=== PATIENT | female | born 1985 | race Caucasian/White ===

== ENCOUNTER → 2016-10-28 | Outpatient (CLI) | payer BC ==
--- NOTE | 2016-10-28 14:33 | P.BASOAP ---
Subjective Principal diagnosis: Morbid obesity Patient here today for follow-up. She is 9 months post sleeve gastrectomy. She never did have her six-month lab work performed. She has had slight increase in her hunger. She is able to eat slightly more than she used to. She is exercising 4 times per week. Denies heartburn. Objective - Exam Abdomen: Soft, nondistended, nontender Assessment/Plan (1) Morbid obesity Narrative/Plan: We'll check 6 month lab work at this time. Continue exercise regimen. Follow- up in the office 6 weeks. Plan: Date: Initial Weight: 150.683 kg Initial BMI: Current Weight: Current BMI: Type of Surgery: Total Volume in Band: Previous Volume: Volume Removed: Volume Added: Band Size:
[2016-10-28 16:19] VITALS: BP 135/78; PULSE 57; TEMP 98.2; BMI 33.2
== END | disposition home or self-care (01) ==
LOC: BARWHC3 13:46
PROVIDERS: ATTEND Surgery
DX: Z48.815 Encounter for surgical aftercare following surgery on the digestive system (principal); E66.01 Morbid (severe) obesity due to excess calories; Z98.84 Bariatric surgery status
CPT/HCPCS: 99211

== ENCOUNTER → 2016-11-10 | Outpatient (CLI) | payer BC ==
[2016-11-10 14:43] LABS: CH 30.8; CHCM 33.1; HCT 38.1 % (34.0-46.0); HDW 2.48; HGB 12.4 gm/dL (11.4-16.0); MCH 30.3 pg (25.0-35.0); MCHC 32.5 g/dL (31.0-37.0); MCV 93.2 fL (80.0-100.0); Mean Platelet Volume 7.9; RBC 4.09 m/uL (3.80-5.40); RDW 13.4 % (11.5-15.5); WBC 4.7 k/uL (3.8-10.6)
[2016-11-10 14:47] LABS: ALT 36 U/L (9-52); AST 19 U/L (14-36); Alkaline Phosphatase 61 U/L (38-126); Anion Gap 11 mmol/L; Blood Urea Nitrogen 11 mg/dL (7-17); Calcium 9.5 mg/dL (8.4-10.2); Carbon Dioxide 29 mmol/L (22-30); Chloride 105 mmol/L (98-107); Glucose 86 mg/dL (74-99); Iron 76 ug/dL (37-170); Non-African American GFR(MDRD) >60 (>60 ml/min/1.73 sqM); Potassium 4.6 mmol/L (3.5-5.1); Sodium 145 mmol/L (137-145); Total Bilirubin 0.6 mg/dL (0.2-1.3); Total Protein 6.9 g/dL (6.3-8.2)
[2016-11-10 15:51] LABS: Vitamin B12 522 pg/mL (239-931)
== END | disposition home or self-care (01) ==
LOC: LABWHC1 13:44
PROVIDERS: ATTEND Surgery
DX: K90.9 Intestinal malabsorption, unspecified (principal); E55.9 Vitamin D deficiency, unspecified; E66.01 Morbid (severe) obesity due to excess calories
CPT/HCPCS: 36415; 80053; 82306; 82607; 82746; 83540; 84425; 85027

== ENCOUNTER → 2017-02-10 | Outpatient (CLI) | payer BC ==
[2017-02-10 14:10] VITALS: BMI 31.0
[2017-02-10 14:20] VITALS: BP 136/71; PULSE 65; RESP 18; TEMP 98.3
--- NOTE | 2017-02-10 14:58 | P.BASOAP ---
Subjective Principal diagnosis: Morbid obesity Patient is doing well postop. Surgery was a little over one year ago. She has had excellent weight loss. She started at 332. Currently she is at 201. She is exercising regularly. Denies heartburn. No pain. Hunger is minimal. She is for 1 year labs. She is complaining of some rash beneath the pannus. Objective - Vital Signs Vital signs: Vital Signs Temp 98.3 F 02/10/17 14:15 Pulse 65 02/10/17 14:15 Resp 18 02/10/17 14:15 BP 136/71 02/10/17 14:15 Pulse Ox Intake & Output 02/09/17 02/10/17 02/10/17 18:59 06:59 18:59 Weight 91.308 kg - Exam Abdomen: Soft, nontender, nondistended, mild rash noted Assessment/Plan (1) Morbid obesity Narrative/Plan: Continue dietary and exercise regimen. Recheck 1 year labs. Follow-up 3-6 months. Plan: Date: 02/10/17 Initial Weight: 150.683 kg Initial BMI: 51.2 Current Weight: 91.308 kg Current BMI: 31.0 Type of Surgery: Total Volume in Band: Previous Volume: Volume Removed: Volume Added: Band Size:
== END | disposition home or self-care (01) ==
LOC: BARWHC3 13:21
PROVIDERS: ATTEND Surgery
DX: E66.01 Morbid (severe) obesity due to excess calories (principal); E55.9 Vitamin D deficiency, unspecified
CPT/HCPCS: 97803; 99211

== ENCOUNTER 2017-11-29 19:01 | Emergency (ER) | payer BC ==
[2017-11-29] MEDS ORDERED: SODIUM CHLORIDE 0.9% 1,000 ML IV STA ×2 (19:16)
[2017-11-29] MEDS ORDERED: RX INFO: IV CONTRAST WAS GIVEN 1 EACH MISC MISCELLANE PRN ×2 (19:16→19:23)
[2017-11-29] MEDS ORDERED: MORPHINE SULFATE 4 MG/ML SYRINGE IV STA (19:16)
--- NOTE | 2017-11-29 19:25 | ED ---
General Adult HPI - General Chief complaint: Abdominal Pain Stated complaint: Abdominal pain Time Seen by Provider: 11/29/17 19:09 Source: patient, RN notes reviewed, old records reviewed Mode of arrival: ambulatory Limitations: no limitations - History of Present Illness Initial comments: This is a 31-year-old female to the ER for evaluation. Patient is ER for evaluation of not feeling like herself. Episodic and epigastric abdominal pain , nausea. No travel history no sick contacts. No fevers. Patient is symptoms for a few days ago, symptoms have progressed. Patient is having worse pain especially after eating. She is also having no bowel - Related Data Home Medications Medication Instructions Recorded Confirmed Multivitamins, Thera [Multivitamin] 1 tab PO DAILY 02/27/16 12/01/17 Biotin 5 mg PO DAILY 06/17/16 12/01/17 Allergies Allergy/AdvReac Type Severity Reaction Status Date / Time No Known Allergies Allergy Verified 12/01/17 16:17 Review of Systems ROS Statement: Those systems with pertinent positive or pertinent negative responses have been documented in the HPI. ROS Other: All systems not noted in ROS Statement are negative. Past Medical History Past Medical History: Asthma, Skin Disorder Additional Past Medical History / Comment(s): allergy induced asthma,varicose veins,skin irritation to rodrigo interior upper legs, THINKS SHE HAS A PNE VACCINE BUT NOT SURE WHEN. History of Any Multi-Drug Resistant Organisms: None Reported Past Surgical History: Adenoidectomy, Bariatric Surgery, Cholecystectomy, Tonsillectomy Additional Past Surgical History / Comment(s): lt wrist tendon surgery, cyst on tailbone removed 2002,EGD, 02-01-16 LAP SLEEVE GASTRECTOMY. Past Anesthesia/Blood Transfusion Reactions: No Reported Reaction, Family History of Problems w/ Anesthesia, Motion Sickness Additional Past Anesthesia/Blood Transfusion Reaction / Comment(s): mother has ponv Past Psychological History: No Psychological Hx Reported Smoking Status: Former smoker Past Alcohol Use History: Rare Past Drug Use History: None Reported - Past Family History Mother Additional Family Medical History / Comment(s): pre cancer tumor removed from stomach Father Family Medical History: Hypertension Additional Family Medical History / Comment(s): MS, BOARDERLINE CHOLESTEROL General Exam Limitations: no limitations General appearance: alert, in no apparent distress Head exam: Present: atraumatic, normocephalic, normal inspection Eye exam: Present: normal appearance, PERRL, EOMI. Absent: scleral icterus, conjunctival injection, periorbital swelling ENT exam: Present: normal exam, mucous membranes moist Neck exam: Present: normal inspection. Absent: tenderness, meningismus, lymphadenopathy Respiratory exam: Present: normal lung sounds bilaterally. Absent: respiratory distress, wheezes, rales, rhonchi, stridor Cardiovascular Exam: Present: regular rate, normal rhythm, normal heart sounds. Absent: systolic murmur, diastolic murmur, rubs, gallop, clicks GI/Abdominal exam: Present: soft, normal bowel sounds. Absent: distended, tenderness, guarding, rebound, rigid Extremities exam: Present: normal inspection, full ROM, normal capillary refill. Absent: tenderness, pedal edema, joint swelling, calf tenderness Back exam: Present: normal inspection Neurological exam: Present: alert, oriented X3, CN II-XII intact Psychiatric exam: Present: normal affect, normal mood Skin exam: Present: warm, dry, intact, normal color. Absent: rash Course Vital Signs 11/29/17 11/29/17 19:05 22:15 Temperature 99.4 F 98.7 F Pulse Rate 66 68 Respiratory 16 18 Rate Blood Pressure 138/82 134/77 O2 Sat by Pulse 100 100 Oximetry Medical Decision Making - Medical Decision Making 31 female the ER for evaluation of abdominal pain, patient has history of gastric bypass, patient's pain is well-controlled at this point. Spoke with Dr. Carnes, labwork and CT negative. Patient can be discharged home - Lab Data Result diagrams: 11/29/17 19:38 11/29/17 19:38 Lab Results 11/29/17 11/29/17 11/29/17 Range/Units 19:38 19:38 19:38 WBC 5.9 (3.8-10.6) k/uL RBC 4.26 (3.80-5.40) m/uL Hgb 13.1 (11.4-16.0) gm/dL Hct 39.7 (34.0-46.0) % MCV 93.2 (80.0-100.0) fL MCH 30.8 (25.0-35.0) pg MCHC 33.1 (31.0-37.0) g/dL RDW 13.2 (11.5-15.5) % Plt Count 246 (150-450) k/uL Neutrophils % 44 % Lymphocytes % 46 % Monocytes % 4 % Eosinophils % 3 % Basophils % 1 % Neutrophils # 2.6 (1.3-7.7) k/uL Lymphocytes # 2.7 (1.0-4.8) k/uL Monocytes # 0.2 (0-1.0) k/uL Eosinophils # 0.2 (0-0.7) k/uL Basophils # 0.1 (0-0.2) k/uL Sodium 141 (137-145) mmol/L Potassium 3.8 (3.5-5.1) mmol/L Chloride 106 (98-107) mmol/L Carbon Dioxide 25 (22-30) mmol/L Anion Gap 10 mmol/L BUN 11 (7-17) mg/dL Creatinine 0.70 (0.52-1.04) mg/dL Est GFR (MDRD) Af Amer >60 (>60 ml/min/1.73 sqM) Est GFR (MDRD) Non-Af >60 (>60 ml/min/1.73 sqM) Glucose 82 (74-99) mg/dL Plasma Lactic Acid Saran 0.6 L (0.7-2.0) mmol/L Calcium 9.4 (8.4-10.2) mg/dL Total Bilirubin 0.4 (0.2-1.3) mg/dL AST 22 (14-36) U/L ALT 33 (9-52) U/L Alkaline Phosphatase 71 (38-126) U/L Total Protein 7.2 (6.3-8.2) g/dL Albumin 4.3 (3.5-5.0) g/dL Amylase 50 (30-110) U/L Lipase 115 (23-300) U/L Urine Color Urine Appearance (Clear) Urine pH (5.0-8.0) Ur Specific Rayne (1.001-1.035) Urine Protein (Negative) Urine Glucose (UA) (Negative) Urine Ketones (Negative) Urine Blood (Negative) Urine Nitrite (Negative) Urine Bilirubin (Negative) Urine Urobilinogen (<2.0) mg/dL Ur Leukocyte Esterase (Negative) Urine RBC (0-5) /hpf Urine WBC (0-5) /hpf Ur Squamous Epith Cells (0-4) /hpf Urine Bacteria (None) /hpf Urine Mucus (None) /hpf Urine HCG, Qual (Not Detectd) 11/29/17 11/29/17 Range/Units 19:38 19:38 WBC (3.8-10.6) k/uL RBC (3.80-5.40) m/uL Hgb (11.4-16.0) gm/dL Hct (34.0-46.0) % MCV (80.0-100.0) fL MCH (25.0-35.0) pg MCHC (31.0-37.0) g/dL RDW (11.5-15.5) % Plt Count (150-450) k/uL Neutrophils % % Lymphocytes % % Monocytes % % Eosinophils % % Basophils % % Neutrophils # (1.3-7.7) k/uL Lymphocytes # (1.0-4.8) k/uL Monocytes # (0-1.0) k/uL Eosinophils # (0-0.7) k/uL Basophils # (0-0.2) k/uL Sodium (137-145) mmol/L Potassium (3.5-5.1) mmol/L Chloride (98-107) mmol/L Carbon Dioxide (22-30) mmol/L Anion Gap mmol/L BUN (7-17) mg/dL Creatinine (0.52-1.04) mg/dL Est GFR (MDRD) Af Amer (>60 ml/min/1.73 sqM) Est GFR (MDRD) Non-Af (>60 ml/min/1.73 sqM) Glucose (74-99) mg/dL Plasma Lactic Acid Saran (0.7-2.0) mmol/L Calcium (8.4-10.2) mg/dL Total Bilirubin (0.2-1.3) mg/dL AST (14-36) U/L ALT (9-52) U/L Alkaline Phosphatase (38-126) U/L Total Protein (6.3-8.2) g/dL Albumin (3.5-5.0) g/dL Amylase (30-110) U/L Lipase (23-300) U/L Urine Color Yellow Urine Appearance Clear (Clear) Urine pH 5.5 (5.0-8.0) Ur Specific Rayne 1.017 (1.001-1.035) Urine Protein Negative (Negative) Urine Glucose (UA) Negative (Negative) Urine Ketones Negative (Negative) Urine Blood Negative (Negative) Urine Nitrite Negative (Negative) Urine Bilirubin Negative (Negative) Urine Urobilinogen <2.0 (<2.0) mg/dL Ur Leukocyte Esterase Small H (Negative) Urine RBC 2 (0-5) /hpf Urine WBC 2 (0-5) /hpf Ur Squamous Epith Cells 1 (0-4) /hpf Urine Bacteria Rare H (None) /hpf Urine Mucus Occasional H (None) /hpf Urine HCG, Qual Not Detected (Not Detectd) - Radiology Data Radiology results: report reviewed (CT abdomen and pelvis, CTA chest negative for acute disease), image reviewed Disposition Clinical Impression: Abdominal pain Disposition: HOME SELF-CARE Condition: Good Instructions: Abdominal Pain (ED) Referrals: Yani Crisostomo MD [Primary Care Provider] - 1-2 days
[2017-11-29] MEDS ORDERED: ONDANSETRON 4 MG/2 ML VIAL IVP STA (19:48)
[2017-11-29] MEDS ORDERED: PANTOPRAZOLE 40 MG/10 ML VIAL IVP STA (19:48)
[2017-11-29 19:55] LABS: Appearance,Urine Clear (Clear); Bacteria,Urine Rare /hpf; Bilirubin,Urine Negative (Negative); Blood,Urine Negative (Negative); Color,Urine Yellow; Glucose,Urine (UA) Negative (Negative); Ketones,Urine Negative (Negative); Leukocyte Esterase,Urine Small (Negative); Mucus,Urine Occasional /hpf; Nitrite,Urine Negative (Negative); PH, Urine 5.5 (5.0-8.0); Protein,Urine Negative (Negative); RBC,Urine 2 /hpf (0-5); Specific Gravity,Urine 1.017 (1.001-1.035); Squamous Epithelial Cell,Urine 1 /hpf (0-4); Urobilinogen,Urine <2.0 mg/dL (<2.0); WBC,Urine 2 /hpf (0-5)
[2017-11-29 19:56] LABS: Basophils # (A) 0.1 k/uL (0-0.2); Basophils % (A) 1 %; Eosinophils # (A) 0.2 k/uL (0-0.7); Eosinophils % (A) 3 %; HCT 39.7 % (34.0-46.0); HGB 13.1 gm/dL (11.4-16.0); Lymphocytes # (A) 2.7 k/uL (1.0-4.8); Lymphocytes % (A) 46 %; MCH 30.8 pg (25.0-35.0); MCHC 33.1 g/dL (31.0-37.0); MCV 93.2 fL (80.0-100.0); Mean Platelet Volume 7.5; Monocytes # (A) 0.2 k/uL (0-1.0); Monocytes % (A) 4 %; Neutrophils # (A) 2.6 k/uL (1.3-7.7); Neutrophils % (A) 44 %; Platelet Count 246 k/uL (150-450); RBC 4.26 m/uL (3.80-5.40); RDW 13.2 % (11.5-15.5); WBC 5.9 k/uL (3.8-10.6)
[2017-11-29 20:09] LABS: ALT 33 U/L (9-52); AST 22 U/L (14-36); Albumin 4.3 g/dL (3.5-5.0); Alkaline Phosphatase 71 U/L (38-126); Amylase 50 U/L (30-110); Anion Gap 10 mmol/L; Blood Urea Nitrogen 11 mg/dL (7-17); Calcium 9.4 mg/dL (8.4-10.2); Carbon Dioxide 25 mmol/L (22-30); Chloride 106 mmol/L (98-107); Glucose 82 mg/dL (74-99); Lipase 115 U/L (23-300); Potassium 3.8 mmol/L (3.5-5.1); Sodium 141 mmol/L (137-145); Total Bilirubin 0.4 mg/dL (0.2-1.3); Total Protein 7.2 g/dL (6.3-8.2)
--- NOTE | 2017-11-29 21:23 | CT ---
EXAMINATION TYPE: CT angio chest DATE OF EXAM: 11/29/2017 COMPARISON: NONE HISTORY: Right upper quadrant pain, lower rib pain x 1 week. Chills and decreased bowel movements. CT DLP: 360.2 mGycm. Automated Exposure Control for Dose Reduction was Utilized. CONTRAST: CTA scan of the thorax is performed with IV Contrast, patient injected with 100 mL of Omnipaque 350, pulmonary embolism protocol. MIP Images are created on CT scanner and reviewed. FINDINGS: LUNGS: The lungs are grossly clear, there is no concerning parenchymal mass or nodule identified. T here is no pleural effusion or pneumothorax seen. The tracheobronchial tree is patent. MEDIASTINUM: Small degree of probable residual thymus is seen within the superior mediastinum. There is satisfactory enhancement of the pulmonary artery and its branches, there is no CT evidence for pul monary embolism. There are no greater than 1 cm hilar or mediastinal lymph nodes. No cardiomegaly or pericardial effusion is seen. OTHER: Postsurgical changes are seen of the greater curvature the stomach and gallbladder fossa. Mild multilevel degenerative changes of the thoracic spine. IMPRESSION: 1. No evidence of pulmonary embolism. 2. No evidence of rib fracture. 3. No acute intrathoracic process.
--- NOTE | 2017-11-29 21:27 | CT ---
EXAMINATION TYPE: CT abdomen pelvis w con DATE OF EXAM: 11/29/2017 HISTORY: Right upper quadrant pain, lower rib pain x 1 week. Chills and decreased bowel movements. CT DLP: 951.5mGycm Automated Exposure Control for Dose Reduction was Utilized. CONTRAST: CT scan of the abdomen and pelvis is performed with IV Contrast, patient injected with 100 mL of Omni paque 350. COMPARISON: None. FINDINGS: LUNG BASES: Visualized portion of the lung bases are discussed on the CT thorax dictation the same da te. LIVER/GB: There is mild intrahepatic biliary ductal dilatation although the gallbladder is surgically absent and this may be related to postcholecystectomy changes there is also extra hepatic biliary du ctal dilatation.. PANCREAS: Unremarkable. No ductal dilatation. SPLEEN: No significant abnormality is seen. Within normal limits of size measuring 11.5 cm in cranioc audal dimension. ADRENALS: No significant abnormality is seen. No nodularity. KIDNEYS: No hydronephrosis. No ureteral dilatation. Kidneys enhance symmetrically. BOWEL: Postsurgical changes are seen of the greater curvature the stomach from prior partial gastrect niurka.. UTERUS/ADNEXA: No gross abnormality seen. LYMPH NODES: No greater than 1cm abdominal or pelvic lymph nodes are appreciated. OSSEOUS STRUCTURES: Vertebral body hemangioma seen of L2. IMPRESSION: 1. Mild intrahepatic and hepatic biliary ductal dilatation. This can be seen in postcholecystectomy a lthough if there are abnormal laboratory values MRCP could be performed for further evaluation. 2. No other evidence of acute intra-abdominal process.
[2017-11-29] MEDS ORDERED: MAG HYDROX/AL HYDROX/SIMETH 30 ML, HYOSCYAMINE ELIXIR 10 ML, CIMETIDINE HCL 300 MG, LID... PO STA ×4 (21:34)
[2017-11-29] MEDS ORDERED: HYDROmorphone 2 MG/ML 1 ML SYRINGE IM STA (21:34)
[2017-11-29] MEDS ORDERED: HYDROmorphone 0.5 MG/0.5 ML SYRINGE IM STA (21:55)
[2017-11-29 22:16] VITALS: BP 134/77; PULSE 68; RESP 18; TEMP 98.7
== END 2017-11-29 22:16 | disposition home or self-care (01) ==
LOC: EC 19:01
DX: R10.13 Epigastric pain (principal); R11.0 Nausea; Z90.49 Acquired absence of other specified parts of digestive tract; Z98.84 Bariatric surgery status; Z90.3 Acquired absence of stomach [part of]; Z87.891 Personal history of nicotine dependence; Z79.899 Other long term (current) drug therapy
CPT/HCPCS: 36415; 80053; 82150; 83605; 83690; 85025; 81001; 81025; 87086; 71275; 74177; 99285; 96374; 96375 ×2; 96361; 96372; J2270; Q9967; J2405; C9113; J1170

== ENCOUNTER → 2017-12-01 | Outpatient (CLI) | payer BC ==
[2017-12-01 16:20] VITALS: BP 129/83; PULSE 58; TEMP 99; BMI 30.7
--- NOTE | 2017-12-01 16:45 | P.BASOAP ---
Subjective Progress Note Date: 12/01/17 Principal diagnosis: Morbid obesity, abdominal pain Patient in our clinic from prior laparoscopic sleeve gastrectomy. Overall the patient has had somewhat poor follow-up since her initial surgery. Over the last several weeks she has had upper abdominal discomfort in the midline radiating to the back. She says it actually reminds her of her previous gallbladder issues. She did have her gallbladder removed however. No history of pancreatitis. She went to the ER 2 days ago for evaluation. CAT scan of the chest abdomen and pelvis showed no definite abnormalities. There was slight dilation of the biliary tree however her liver enzymes were normal. She does admit to drinking slightly more alcohol the evening before. Low-grade fever and chills at times. 1 episode of regurgitation with toast. She does believe the pain is aggravated somewhat by eating. No heartburn. No vomiting. Labs including amylase and lipase were normal in the ER. She does describe increased stress at work and is wondering about the possibility of ulcer disease. Denies black stools. Objective - Vital Signs Vital signs: Vital Signs Temp 99 F 12/01/17 16:14 Pulse 58 L 12/01/17 16:14 Resp BP 129/83 12/01/17 16:14 Pulse Ox Intake & Output 11/30/17 12/01/17 12/01/17 18:59 06:59 18:59 Weight 90.492 kg - Exam Abdomen: Soft, mild epigastric tenderness, no rebound or guarding Assessment/Plan (1) Abdominal pain Narrative/Plan: From a weight loss standpoint the patient is doing quite well. Unfortunate she is now having epigastric abdominal pain. Options discussed in detail with the patient. Will begin antiacid therapy. If symptoms persist proceed with upper endoscopy. Follow-up appointment in 4-6 weeks. Plan: Date: 12/01/17 Initial Weight: 150.683 kg Initial BMI: 51.2 Current Weight: 90.492 kg Current BMI: 30.7 Type of Surgery: Total Volume in Band: Previous Volume: Volume Removed: Volume Added: Band Size:
== END | disposition home or self-care (01) ==
LOC: BARWHC3 15:37
PROVIDERS: ATTEND Surgery
DX: R10.13 Epigastric pain (principal); E66.01 Morbid (severe) obesity due to excess calories; Z68.43 Body mass index [BMI] 50.0-59.9, adult; Z90.49 Acquired absence of other specified parts of digestive tract
CPT/HCPCS: 99211

== ENCOUNTER 2017-12-11 11:23 | Day surgery (SDC) | payer BC ==
[2017-12-09 10:28] VITALS: BMI 28.8
[~2017-12-11 11:23] MED LIST: LACTATED RINGERS 1,000 ML IV SCH
[2017-12-11 11:48] VITALS: RESP 16; TEMP 98.2
[2017-12-11] MEDS ORDERED: LIDOCAINE 1% 20 ML VIAL (10MG/ML) FOR IV START INTRADERMA ONE (11:58)
--- NOTE | 2017-12-11 12:19 | P.GSHP ---
History of Present Illness H&P Date: 12/11/17 Chief Complaint: Abdominal pain 31-year-old female known to our service. Underwent prior laparoscopic sleeve gastrectomy. Recently has been having complaints of upper abdominal pain. Please refer to recent clinic visit note from late November. Here today for upper endoscopy. Past Medical History Past Medical History: Asthma Additional Past Medical History / Comment(s): Allergy induced asthma, A CHILD. Varicose veins. THINKS SHE HAS A PNE VACCINE BUT NOT SURE WHEN. History of Any Multi-Drug Resistant Organisms: None Reported Past Surgical History: Adenoidectomy, Bariatric Surgery, Cholecystectomy, Tonsillectomy Additional Past Surgical History / Comment(s): lt wrist tendon surgery, cyst on tailbone removed 2002,EGD, 02-01-16 LAP SLEEVE GASTRECTOMY. Past Anesthesia/Blood Transfusion Reactions: Family History of Problems w/ Anesthesia, Motion Sickness Additional Past Anesthesia/Blood Transfusion Reaction / Comment(s): mother has ponv Smoking Status: Former smoker - Past Family History Mother Additional Family Medical History / Comment(s): pre cancer tumor removed from stomach Father Family Medical History: Hypertension Additional Family Medical History / Comment(s): MS, BOARDERLINE CHOLESTEROL Medications and Allergies Home Medications Medication Instructions Recorded Confirmed Type Multivitamins, Thera [Multivitamin] 1 tab PO DAILY 02/27/16 12/09/17 History Biotin 5 mg PO DAILY 06/17/16 12/09/17 History Omeprazole Unsure Dose 1 cap PO DAILY 12/09/17 History Allergies Allergy/AdvReac Type Severity Reaction Status Date / Time No Known Allergies Allergy Verified 12/11/17 11:46 Surgical - Exam Vital Signs Temp Pulse Resp BP Pulse Ox 98.2 F 60 16 116/77 98 12/11/17 11:47 12/11/17 11:47 12/11/17 11:47 12/11/17 11:47 12/11/17 11:47 Physical exam: General: Well-developed, well-nourished HEENT: Normocephalic, sclerae nonicteric Abdomen: Nontender, nondistended Extremities: No edema Neuro: Alert and oriented Assessment and Plan (1) Abdominal pain Narrative/Plan: Will proceed with upper endoscopy at this time. Current Visit: No Status: Acute Code(s): R10.9 - UNSPECIFIED ABDOMINAL PAIN SNOMED Code(s): 05421399
[2017-12-11] MEDS ORDERED: PROPOFOL 10 MG/ML 20 ML VIAL IV ONE (12:23)
--- NOTE | 2017-12-11 12:39 | P.PCN ---
Date of Procedure: 12/11/17 Procedure(s) Performed: Preoperative Dx: Abdominal pain Postoperative Dx: Mild gastritis post sleeve gastrectomy Procedure: EGD with Bx Anesthesia: Sedation Endoscopist: Dr. Scott Specimens: Antrum Endoscopic Procedure: The patient was on the endoscopy table in the left decubitus position. The Olympus gastroscope was inserted into the oropharynx and passed under direct visualization to the region of the third portion of the duodenum. From that point the scope was slowly withdrawn inspecting all surfaces carefully. There were no neoplastic inflammatory or polypoid lesions throughout the duodenum. The pylorus was widely patent. The stomach was carefully inspected. There was mild gastritis present. A biopsy of the antrum took place to rule out H. pylori. Retroflexion was able to be performed in the distal stomach. The proximal sleeve appeared appropriately sized. There are no abnormalities identified throughout the length of the sleeve. At the apex of the sleeve staple line I was able to visualize a small staple without inflammatory changes. The esophagus was then carefully examined. There were no neoplastic inflammatory or polypoid lesions throughout the visualized esophagus. The patient was then taken to the recovery room in stable condition per anesthesia guidelines. Recommendations: Continue antiacid therapy. Await biopsy results.
[2017-12-11 13:03] VITALS: BP 101/59; PULSE 53
== END 2017-12-11 13:18 | disposition home or self-care (01) ==
LOC: ORWHC2ENDO 11:23
PROVIDERS: ATTEND Surgery
DX: K29.50 Unspecified chronic gastritis without bleeding (principal); Z90.3 Acquired absence of stomach [part of]; Z98.84 Bariatric surgery status; K21.9 Gastro-esophageal reflux disease without esophagitis; Z79.899 Other long term (current) drug therapy; Z72.0 Tobacco use
CPT/HCPCS: 81025; 88305; 43239; J2704

== ENCOUNTER 2020-09-05 19:49 | Emergency (ER) | payer BC ==
[2020-09-05 20:06] VITALS: BP 138/92; PULSE 105; RESP 20; TEMP 98.5
[2020-09-05] MEDS ORDERED: SODIUM CHLORIDE 0.9% 1,000 ML IV STA (20:21)
[2020-09-05] MEDS ORDERED: ASPIRIN 81 MG PO STA (20:21)
--- NOTE | 2020-09-05 20:37 | ED ---
General Adult HPI - General Chief complaint: Recheck/Abnormal Lab/Rx Stated complaint: Arm pain/light headed Time Seen by Provider: 09/05/20 20:12 Source: patient Mode of arrival: ambulatory Limitations: no limitations - History of Present Illness Initial comments: 34-year-old female patient presents to the emergency department today for evaluation of left upper chest pain left arm pain. States this been going on since this morning and has not gone away. 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 States her vital signs were okay. States that they talked her into getting checked also on the way here she then started to lose her vision and hearing and thought she may pass out. Patient states the pain in her chest that increased during that time. She states she has had some lightheadedness as well. Denies any headache. Denies blurred or double vision, but states she cannot focus. States she is mildly nauseated but denies any vomiting. Denies any sweats. Denies any history of similar symptoms. She does not take any medications. States she did start. States that she does not believe she is . Denies any neck pain or recent injuries. Patient denies any recent rash, fever, chills, cough, abdominal pain, nausea, vomiting, diarrhea, constipation, back pain, numbness, tingling, hematuria, dysuria, urinary urgency, urinary frequency, or any other complaints. - Related Data Home Medications Medication Instructions Recorded Confirmed Thrive Multivitamin 1 tab PO DAILY 09/05/20 09/05/20 Allergies Allergy/AdvReac Type Severity Reaction Status Date / Time No Known Allergies Allergy Verified 09/05/20 21:08 Review of Systems ROS Statement: Those systems with pertinent positive or pertinent negative responses have been documented in the HPI. ROS Other: All systems not noted in ROS Statement are negative. Past Medical History Past Medical History: Asthma Additional Past Medical History / Comment(s): Allergy induced asthma, A CHILD. Varicose veins. THINKS SHE HAS A PNE VACCINE BUT NOT SURE WHEN. History of Any Multi-Drug Resistant Organisms: None Reported Past Surgical History: Adenoidectomy, Bariatric Surgery, Cholecystectomy, Tonsillectomy Additional Past Surgical History / Comment(s): lt wrist tendon surgery, cyst on tailbone removed 2002,EGD, 4-29-16 LAP SLEEVE GASTRECTOMY. Past Anesthesia/Blood Transfusion Reactions: Family History of Problems w/ Anesthesia, Motion Sickness Additional Past Anesthesia/Blood Transfusion Reaction / Comment(s): mother has ponv Past Psychological History: No Psychological Hx Reported Smoking Status: Current some day smoker Past Alcohol Use History: Occasional Past Drug Use History: None Reported - Past Family History Mother Additional Family Medical History / Comment(s): pre cancer tumor removed from stomach Father Family Medical History: Hypertension Additional Family Medical History / Comment(s): MS, BOARDERLINE CHOLESTEROL General Exam Limitations: no limitations General appearance: alert, in no apparent distress, other (This is a well- developed, well-nourished adult female patient in no acute distress. Vital signs upon presentation are temperature 98.5F, pulse 105, respirations 20, blood pressure 138/92, pulse ox 97% on room air.) Eye exam: Present: normal appearance, PERRL, EOMI. Absent: scleral icterus, conjunctival injection, periorbital swelling ENT exam: Present: normal exam, normal oropharynx, mucous membranes moist Respiratory exam: Present: normal lung sounds bilaterally. Absent: respiratory distress, wheezes, rales, rhonchi, stridor Cardiovascular Exam: Present: normal rhythm, tachycardia, normal heart sounds. Absent: systolic murmur, diastolic murmur, rubs, gallop, clicks GI/Abdominal exam: Present: soft, normal bowel sounds. Absent: distended, tenderness, guarding, rebound, rigid Neurological exam: Present: alert, oriented X3, CN II-XII intact Expanded Speech: Present: fluid speech Cranial nerves: EOM's Intact: Normal, Tongue Deviation: Normal, Nystagmus: Normal Motor strength exam: RUE: 5, LUE: 5, RLE: 5, LLE: 5 Eye Response: (4) open spontaneously Motor Response: (6) obeys commands Verbal Response: (5) oriented Domenic Total: 15 Psychiatric exam: Present: normal affect, normal mood Skin exam: Present: warm, dry, intact, normal color. Absent: rash Course Vital Signs 09/05/20 20:03 Temperature 98.5 F Pulse Rate 105 H Respiratory 20 Rate Blood Pressure 138/92 O2 Sat by Pulse 97 Oximetry EKG Findings - EKG Comments: EKG Findings:: EKG obtained at 2027 shows sinus bradycardia with a ventricular rate of 59, [place] interval 164, QRS duration 92, QT 418, QTC 413. No evidence of ST elevation or depression. Medical Decision Making - Medical Decision Making 34-year-old female patient presented to the emergency department today for evaluation of left upper chest pain radiating down the left arm. He is also reporting lightheadedness and a near syncopal event while driving here. Physica l examination was unremarkable. Lungs are clear to auscultation. EKG showed sinus bradycardia with no ST elevation or depression. Labs reviewed and are unremarkable. Troponin and d-dimer are both negative. Chest x-ray showed no acute cardiopulmonary process. I did discuss findings and results with the patient. I did offer further evaluation with second troponin and about an hour and a half, patient states that she currently feels comfortable being discharged home and she is feeling somewhat better. She'll be discharged. Her primary care physician for recheck in 1-2 days. She is instructed to discuss possible stress test. Return parameters were discussed in detail. She verbalizes understanding and agrees with this plan - Lab Data Result diagrams: 09/05/20 20:42 09/05/20 20:38 Lab Results 09/05/20 09/05/20 09/05/20 Range/Units 20:38 20:38 20:38 WBC (3.8-10.6) k/uL RBC (3.80-5.40) m/uL Hgb (11.4-16.0) gm/dL Hct (34.0-46.0) % MCV (80.0-100.0) fL MCH (25.0-35.0) pg MCHC (31.0-37.0) g/dL RDW (11.5-15.5) % Plt Count (150-450) k/uL MPV Neutrophils % % Lymphocytes % % Monocytes % % Eosinophils % % Basophils % % Neutrophils # (1.3-7.7) k/uL Lymphocytes # (1.0-4.8) k/uL Monocytes # (0-1.0) k/uL Eosinophils # (0-0.7) k/uL Basophils # (0-0.2) k/uL PT 10.4 (9.0-12.0) sec INR 1.0 (<1.2) APTT 24.2 (22.0-30.0) sec D-Dimer 0.24 (<0.60) mg/L FEU Sodium 139 (137-145) mmol/L Potassium 4.3 (3.5-5.1) mmol/L Chloride 107 (98-107) mmol/L Carbon Dioxide 26 (22-30) mmol/L Anion Gap 6 mmol/L BUN 12 (7-17) mg/dL Creatinine 0.61 (0.52-1.04) mg/dL Est GFR (CKD-EPI)AfAm >90 (>60 ml/min/1.73 sqM) Est GFR (CKD-EPI)NonAf >90 (>60 ml/min/1.73 sqM) Glucose 96 (74-99) mg/dL Calcium 9.2 (8.4-10.2) mg/dL Magnesium 2.1 (1.6-2.3) mg/dL Total Bilirubin 0.4 (0.2-1.3) mg/dL AST 25 (14-36) U/L ALT 18 (4-34) U/L Alkaline Phosphatase 86 (38-126) U/L Troponin I <0.012 (0.000-0.034) ng/mL Total Protein 7.2 (6.3-8.2) g/dL Albumin 4.3 (3.5-5.0) g/dL Lipase 157 (23-300) U/L Urine Color Urine Appearance (Clear) Urine pH (5.0-8.0) Ur Specific [place] (1.001-1.035) Urine Protein (Negative) Urine Glucose (UA) (Negative) Urine Ketones (Negative) Urine Blood (Negative) Urine Nitrite (Negative) Urine Bilirubin (Negative) Urine Urobilinogen (<2.0) mg/dL Ur Leukocyte Esterase (Negative) Urine RBC (0-5) /hpf Urine WBC (0-5) /hpf Ur Squamous Epith Cells (0-4) /hpf Urine Bacteria (None) /hpf Urine HCG, Qual (Not Detectd) 09/05/20 09/05/20 09/05/20 Range/Units 20:42 21:02 21:02 WBC 4.4 (3.8-10.6) k/uL RBC 4.26 (3.80-5.40) m/uL Hgb 12.9 (11.4-16.0) gm/dL Hct 39.0 (34.0-46.0) % MCV 91.6 (80.0-100.0) fL MCH 30.2 (25.0-35.0) pg MCHC 33.0 (31.0-37.0) g/dL RDW 13.6 (11.5-15.5) % Plt Count 234 (150-450) k/uL MPV 8.0 Neutrophils % 61 % Lymphocytes % 25 % Monocytes % 5 % Eosinophils % 6 % Basophils % 1 % Neutrophils # 2.7 (1.3-7.7) k/uL Lymphocytes # 1.1 (1.0-4.8) k/uL Monocytes # 0.2 (0-1.0) k/uL Eosinophils # 0.3 (0-0.7) k/uL Basophils # 0.0 (0-0.2) k/uL PT (9.0-12.0) sec INR (<1.2) APTT (22.0-30.0) sec D-Dimer (<0.60) mg/L FEU Sodium (137-145) mmol/L Potassium (3.5-5.1) mmol/L Chloride (98-107) mmol/L Carbon Dioxide (22-30) mmol/L Anion Gap mmol/L BUN (7-17) mg/dL Creatinine (0.52-1.04) mg/dL Est GFR (CKD-EPI)AfAm (>60 ml/min/1.73 sqM) Est GFR (CKD-EPI)NonAf (>60 ml/min/1.73 sqM) Glucose (74-99) mg/dL Calcium (8.4-10.2) mg/dL Magnesium (1.6-2.3) mg/dL Total Bilirubin (0.2-1.3) mg/dL AST (14-36) U/L ALT (4-34) U/L Alkaline Phosphatase (38-126) U/L Troponin I (0.000-0.034) ng/mL Total Protein (6.3-8.2) g/dL Albumin (3.5-5.0) g/dL Lipase (23-300) U/L Urine Color Light Yellow Urine Appearance Clear (Clear) Urine pH 7.0 (5.0-8.0) Ur Specific [place] 1.008 (1.001-1.035) Urine Protein Negative (Negative) Urine Glucose (UA) Negative (Negative) Urine Ketones Negative (Negative) Urine Blood Moderate H (Negative) Urine Nitrite Negative (Negative) Urine Bilirubin Negative (Negative) Urine Urobilinogen <2.0 (<2.0) mg/dL Ur Leukocyte Esterase Large H (Negative) Urine RBC 3 (0-5) /hpf Urine WBC 12 H (0-5) /hpf Ur Squamous Epith Cells 3 (0-4) /hpf Urine Bacteria Rare H (None) /hpf Urine HCG, Qual Not Detected (Not Detectd) - Radiology Data Radiology results: report reviewed, image reviewed Two-view x-ray of the chest is obtained. Report was reviewed in its entirety. Impression by Dr. Marcos shows normal chest. Disposition Clinical Impression: Chest pain, Lightheadedness Disposition: HOME SELF-CARE Condition: Good Instructions (If sedation given, give patient instructions): Chest Pain (ED), Lightheadedness (ED) Additional Instructions: Follow up with the primary care physician for recheck in 1-2 days. Return to the emergency department for any new, worsening, or concerning symptoms. Is patient prescribed a controlled substance at d/c from ED?: No Referrals: Yani Crisostomo MD [Primary Care Provider] - 1-2 days Time of Disposition: 21:34
[2020-09-05 20:45] LABS: Basophils % (A) 1 %; Eosinophils # (A) 0.3 k/uL (0-0.7); Eosinophils % (A) 6 %; HGB 12.9 gm/dL (11.4-16.0); Lymphocytes # (A) 1.1 k/uL (1.0-4.8); Lymphocytes % (A) 25 %; MCH 30.2 pg (25.0-35.0); MCV 91.6 fL (80.0-100.0); Monocytes # (A) 0.2 k/uL (0-1.0); Monocytes % (A) 5 %; Neutrophils # (A) 2.7 k/uL (1.3-7.7); Neutrophils % (A) 61 %; Platelet Count 234 k/uL (150-450); RBC 4.26 m/uL (3.80-5.40); RDW 13.6 % (11.5-15.5); WBC 4.4 k/uL (3.8-10.6)
[2020-09-05 20:59] LABS: D-Dimer 0.24 mg/L FEU (<0.60); Partial Thromboplastin Time 24.2 sec (22.0-30.0); Prothrombin Time 10.4 sec (9.0-12.0)
[2020-09-05 21:00] LABS: ALT 18 U/L (4-34); AST 25 U/L (14-36); African American GFR (CKD) >90 (>60 ml/min/1.73 sqM); Albumin 4.3 g/dL (3.5-5.0); Alkaline Phosphatase 86 U/L (38-126); Anion Gap 6 mmol/L; Blood Urea Nitrogen 12 mg/dL (7-17); Calcium 9.2 mg/dL (8.4-10.2); Carbon Dioxide 26 mmol/L (22-30); Chloride 107 mmol/L (98-107); Glucose 96 mg/dL (74-99); Lipase 157 U/L (23-300); Magnesium 2.1 mg/dL (1.6-2.3); Non-African American GFR(CKD) >90 (>60 ml/min/1.73 sqM); Potassium 4.3 mmol/L (3.5-5.1); Sodium 139 mmol/L (137-145); Total Bilirubin 0.4 mg/dL (0.2-1.3); Total Protein 7.2 g/dL (6.3-8.2)
--- NOTE | 2020-09-05 21:10 | XR ---
EXAMINATION TYPE: XR chest 2V DATE OF EXAM: 09/05/2020 COMPARISON: NONE HISTORY: Chest pain TECHNIQUE: FINDINGS: Heart and mediastinum are normal. Lungs are clear. Diaphragm is normal. Bony thorax appears normal. IMPRESSION: Normal chest.
[2020-09-05 21:16] LABS: Appearance,Urine Clear (Clear); Bacteria,Urine Rare /hpf; Bilirubin,Urine Negative (Negative); Blood,Urine Moderate (Negative); Color,Urine Light Yellow; Glucose,Urine (UA) Negative (Negative); Ketones,Urine Negative (Negative); Leukocyte Esterase,Urine Large (Negative); Nitrite,Urine Negative (Negative); Protein,Urine Negative (Negative); RBC,Urine 3 /hpf (0-5); Specific Gravity,Urine 1.008 (1.001-1.035); Squamous Epithelial Cell,Urine 3 /hpf (0-4); Urobilinogen,Urine <2.0 mg/dL (<2.0); WBC,Urine 12 /hpf (0-5)
== END 2020-09-05 21:42 | disposition home or self-care (01) ==
LOC: EC 19:49
DX: R07.9 Chest pain, unspecified (principal); R42 Dizziness and giddiness; R55 Syncope and collapse; R00.1 Bradycardia, unspecified; F17.200 Nicotine dependence, unspecified, uncomplicated
CPT/HCPCS: 36415; 71046; 80053; 81001; 81025; 83690; 83735; 84484; 85025; 85379; 85610; 85730; 87086; 93005; 96360; 99285